=== PATIENT | female | born 1935 | race Caucasian/White ===

== ENCOUNTER → 2017-01-11 | Outpatient (CLI) | payer MEDICARE ==
--- NOTE | 2017-01-11 17:32 | XR ---
EXAMINATION TYPE: XR ankle complete LT DATE OF EXAM: 01/11/2017 COMPARISON: NONE HISTORY: 81-year-old female with generalized left ankle pain TECHNIQUE: 3 views FINDINGS: There is a corticated ossific density below the medial malleolus. Ankle mortise is congruent with pre servation of the distal tibiofibular overlap. Subtalar joint is aligned. Small posterior calcaneal sp ur. Some ossification along the plantar fascia noted. No acute fracture dislocation. Degenerative igor nges at the first MTP joint. IMPRESSION: 1. Some soft tissue ossification suggests chronic injury to the plantar fascia. 2. Corticated bone fragment below the medial malleolus compatible with remote injury to the deltoid l igament. 3. First MTP joint osteoarthrosis.
== END ==
LOC: RADXRYALE 14:12
PROVIDERS: ATTEND Family Medicine
DX: M19.072 Primary osteoarthritis, left ankle and foot (principal)

== ENCOUNTER → 2017-09-21 | Outpatient (CLI) | payer MEDICARE ==
--- NOTE | 2017-09-21 13:11 | US ---
EXAMINATION TYPE: US venous doppler duplex LE RT DATE OF EXAM: 09/21/2017 12:47 PM COMPARISON: NONE CLINICAL HISTORY: R22.41 SWELLING RT LOWER LIMB. SIDE PERFORMED: Right TECHNIQUE: The lower extremity deep venous system is examined utilizing real time linear array sonog елена with graded compression, doppler sonography and color-flow sonography. VESSELS IMAGED: External Iliac Vein (EIV) Common Femoral Vein Deep Femoral Vein Greater Saphenous Vein * Femoral Vein Popliteal Vein Small Saphenous Vein * Proximal Calf Veins (* superficial vessels) Right Leg: Negative for DVT Grayscale, color doppler, spectral doppler imaging performed of the deep veins of the right lower ext remity. There is normal flow, compressibility, vascular waveforms. IMPRESSION: No sonographic evidence of the deep venous thrombosis within the right lower extremity.
--- NOTE | 2017-09-21 14:03 | XR ---
EXAMINATION TYPE: XR ankle complete RT DATE OF EXAM: 09/21/2017 CLINICAL HISTORY: Right ankle pain and swelling TECHNIQUE: Frontal, lateral and oblique images of the right ankle are obtained. COMPARISON: None. FINDINGS: There is no acute fracture/dislocation evident in the right ankle. The ankle mortise appe ars within normal limits. Mild soft tissue swelling is seen inferior to the malleoli. Small vessel at herosclerosis is seen. Calcification of the plantar fascia and Achilles insertion are noted. Partial visualization of degenerative change of the first tarsometatarsal joint is seen. IMPRESSION: 1. Mild circumferential right ankle soft tissue swelling with no acute fracture or dislocation in the right ankle. 2. Calcification of the distal Achilles tendon indicative of chronic tendinopathy and calcification a long the plantar surface which may relate to chronic inflammatory sequela.
== END | disposition home or self-care (01) ==
LOC: RADUSWWP 11:50
PROVIDERS: ATTEND Family Medicine
DX: M65.871 Other synovitis and tenosynovitis, right ankle and foot (principal); M79.89 Other specified soft tissue disorders; R22.41 Localized swelling, mass and lump, right lower limb

== ENCOUNTER → 2017-10-16 | Outpatient (CLI) | payer MEDICARE ==
--- NOTE | 2017-10-16 11:41 | XR ---
EXAMINATION TYPE: XR chest 2V DATE OF EXAM: 10/16/2017 COMPARISON: Prior chest x-ray 11/30/2014 HISTORY: Pneumonia, assisted living home placement TECHNIQUE: Frontal and lateral views of the chest are obtained. FINDINGS: Prominent lung volumes are again noted, the interstitium is increased as on prior. Heart s ize is stable and enlarged. 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 No evident pneumothorax. Pulmonary vascularity and pedro pablo are stable. Thorac ic spondylosis is noted. Suspect coronary artery calcification. The aorta is dense. IMPRESSION: No acute cardiopulmonary process.
== END | disposition home or self-care (01) ==
LOC: RADXRMAIN 11:01
PROVIDERS: ATTEND Family Medicine
DX: J12.89 Other viral pneumonia (principal)
CPT/HCPCS: 71046

== ENCOUNTER → 2018-05-20 | Outpatient (CLI) | payer MEDICARE ==
--- NOTE | 2018-05-20 15:33 | XR ---
Cervical spine HISTORY: Neck pain 5 views of the cervical spine Oblique images is not optimal to evaluate the foramina on the left. On the right there is lateral ext ension of endplate disc complexes at C5-6 and C6-7 causing foraminal encroachment. Minimal anterolist hesis grade 1 C4-5, C7-T1. Retrolisthesis grade 1 C6-7. Cervical vertebral bodies show preserved heig ht. Bone mineralization is reduced. Prevertebral soft tissues are normal. There is facet arthropathy change. Odontoid view is limited. Atherosclerotic vascular calcifications seen in the carotid artery distribution. Pacing leads are present along the subclavian vein course. Head tilt is present. IMPRESSION: Degenerative disc disease, facet arthropathy, osteopenia and foraminal encroachment.
--- NOTE | 2018-05-20 15:35 | XR ---
Bilateral shoulders HISTORY: Shoulder pain 2 views of each shoulder submitted. Pacemaker is present in the left pectoral region. Acromioclavicular joint arthropathy changes present bilaterally. There is a calcification lateral to the left humeral head which may be indicative of ca lcific tendinitis. Alignment is maintained. Bone mineralization is normal. No fracture or dislocation . Lung apices are unremarkable. Some linear stranding present in the left midlung likely is indicativ e of scarring. IMPRESSION: Acromioclavicular joint arthropathy. Correlate for possible calcific tendinitis on the le ft. Additional findings above.
== END | disposition home or self-care (01) ==
LOC: RADXRYALE 11:51
PROVIDERS: ATTEND Internal Medicine
DX: M50.322 Other cervical disc degeneration at C5-C6 level (principal); M46.92 Unspecified inflammatory spondylopathy, cervical region; M85.88 Other specified disorders of bone density and structure, other site; M19.012 Primary osteoarthritis, left shoulder; M19.011 Primary osteoarthritis, right shoulder
CPT/HCPCS: 72050